=== PATIENT | female | born 1950 | race Caucasian/White ===

== ENCOUNTER → 2021-12-24 14:19 | Outpatient (BNVA) | payer MEDICARE, SELFPAY | PROVIDERS: PCP Family Medicine; Visit Provider Internal Medicine Critical Care Medicine | DX: J96.11 Chronic respiratory failure with hypoxia; I82.409 Acute embolism and thrombosis of unspecified deep veins of unspecified lower extremity; Z86.16 Personal history of COVID-19; Z99.81 Dependence on supplemental oxygen; Z79.01 Long term (current) use of anticoagulants | CPT/HCPCS: 71046; 99204 ==

== ENCOUNTER → 2022-01-23 10:33 | Outpatient (BNVA) | payer MEDICARE, SELFPAY | PROVIDERS: PCP Family Medicine; Visit Provider Internal Medicine Critical Care Medicine | DX: I82.409 Acute embolism and thrombosis of unspecified deep veins of unspecified lower extremity (principal); J96.11 Chronic respiratory failure with hypoxia; R06.02 Shortness of breath | CPT/HCPCS: 80053; 85025 ==

== ENCOUNTER → 2022-07-28 14:12 | Outpatient (BNVA) | payer MEDICARE, SELFPAY | PROVIDERS: PCP Family Medicine; Visit Provider Podiatrist Foot & Ankle Surgery | DX: E11.9 Type 2 diabetes mellitus without complications (principal); G62.9 Polyneuropathy, unspecified; B35.1 Tinea unguium; G60.9 Hereditary and idiopathic neuropathy, unspecified; Z79.84 Long term (current) use of oral hypoglycemic drugs | CPT/HCPCS: 11721; 99203 ==